=== PATIENT | female | born 1985 | race Hispanic/Latino ===

== ENCOUNTER 2016-11-02 17:23 | Emergency (ER) | payer OTHER ==
[~2016-11-02] VITALS: Ht 152.4 cm; Wt 68.0 kg
[~2016-11-02 17:23] MED LIST: ABILIFY20 MG PO; CEFTIN500 MG PO; CITALOPRAM HYDR40 MG PO; IBUPROFEN800 M1 PO; IMODIUM2 MG PO; LAMICTAL 25MG25 MG PO; LAMICTAL25 MG PO; LITHIUM CARBON300 M1 PO; MACROBID100 MG PO; MOTRIN800 MG PO; NEURONTIN100 MG; NEURONTIN100 MG PO; NEURONTIN300 MG PO; PHENAZOPYRIDIN100 MG PO; PREDNISONE10 MG PO; PRENATAL1 TA2 PO; PYRIDIUM100 MG PO; ROBITUSSIN W/CO10 ML PO; ZITHROMAX250 M1 PO; ZOFRAN ODT4 MG PO
--- NOTE | 2016-11-02 17:41 | ED SKIN/ALLERGY COMPLAINT ---
History of Present Illness General Chief Complaint: Allergy Symptoms Stated Complaint: WELTS ALL OVER BACK AND NECK X FEW HRS Source: patient Exam Limitations: no limitations Vital Signs & Intake/Output Vital Signs & Intake/Output Vital Signs Date Time Temp Pulse Resp B/P Pulse O2 O2 Flow FiO2 Ox Delivery Rate 11/02 1920 97.9 67 18 106/64 98 Room Air 11/02 1730 97.0 80 20 100/70 98 Room Air Allergies Coded Allergies: Penicillins (RASH 10/24/15) Sulfa (Sulfonamide Antibiotics) (RASH 10/24/15) clarithromycin (RASH 10/24/15) latex (RASH 10/24/15) moxifloxacin (From AVELOX) (HIVES, RASH 10/24/15) Reconcile Medications Aripiprazole (Abilify) 20 MG TABLET 1 TAB PO DAILY MENTAL HEALTH (Reported) Diphenhydramine HCl (Benadryl) 25 MG CAPSULE 1 CAP PO TID PRN ITCHING Famotidine (Pepcid) 20 MG TABLET 1 TAB PO BID ALLERGIC REACTION Lamotrigine (Lamictal) 25 MG TABLET 1 TAB PO TID MENTAL HEALTH (Reported) Methylprednisolone. (Medrol) 4 MG TAB.DS.PK 1 DP PO AD ALLERGIC REACTION 6 on day 1 then reduce by one tablet daily until gone Triage Note: GENERALIZED WELTS AND HIEVES ON BODY STARTED ABOUT 1 HR AGO DENIES HX Triage Nurses Notes Reviewed? yes Onset: Abrupt Duration: constant Timing: single episode today Severity: moderate Severity Numbers: 5 Location: torso Possible Factors: no cause identified : No Patient currently breastfeeds: No HPI: Patient is a 31-year-old female presents to emergency room stating that 2 hours prior to arrival patient was drinking a blueberry banana shake where she is lactose intolerant and which she states that approximately 15 minutes later patient had acute onset of upper back pruritic red rash. Patient did not take any medications prior to arrival. Patient denies any other location of symptoms , denies any shortness of breath tongue swelling lip swelling difficulty breathing difficulty swallowing. Patient denies any other etiology of symptoms or IRRITANTS (LORNA KAUFMAN) Past History Travel History Traveled to [place] past 21 day No Medical History Any Pertinent Medical History? 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 No (LORNA KAUFMAN) Review of Systems Review of Systems Constitutional: Reports: no symptoms. EENTM: Reports: no symptoms. Respiratory: Reports: no symptoms. Cardiovascular: Reports: no symptoms. GI: Reports: no symptoms. Genitourinary: Reports: no symptoms. Musculoskeletal: Reports: no symptoms. Skin: Reports: see HPI, rash. Neurological/Psychological: Reports: no symptoms. Hematologic/Endocrine: Reports: no symptoms. Immunologic/Allergic: Reports: no symptoms. All Other Systems: Reviewed and Negative (LORNA KAUFMAN) Physical Exam Physical Exam General Appearance: no apparent distress, alert, comfortable Skin: intact Skin Problem Location: torso Skin Problem Character: intact, rash Lymphatic: no anterior cervical alejandro Comments: Well-developed well-nourished person in no acute distress HEENT: Normal EENT exam, extraocular motion intact, no nystagmus. Pupils equally round and reactive to light and accommodation. Nose is atraumatic. External auditory canal and Tympanic membranes clear. Pharynx normal. No swelling or edema. No stridor no tongue swelling no lip swelling no pharyngeal swelling Neck: Supple, no lymphadenopathy, normal range of motion without pain or tenderness no stridor Back: Nontender, no CVA tenderness. Cardiovascular: Regular rate and rhythms no murmurs rubs or gallops, normal JVP Respiratory: Chest nontender. No respiratory distress.breath sounds clear to auscultation bilaterally Abdomen: Soft, nontender nondistended, no appreciable organomegaly. Normal bowel sounds. No ascites Extremity: No edema, no calf tenderness to palpation, normal and equal pulses. Neuro: Alert oriented x3, motor sensory normal, Skin: No appreciable rash on exposed skin, skin is warm and dry. Psych: Mood and affect is normal, memory and judgment is normal. Diagram Body: 1) Macular papular erythematous raised rash (LORNA KAUFMAN) Progress Differential Diagnosis: abscess/cellulitis, allergic reaction, anaphylaxis, angioedema, asthma, contact dermatitis, drug reaction, erythema multiforme, lyme disease, piyriasis rosea, syphilis/gonococcemia, urticaria Plan of Care: No concerns at this time of anaphylaxis or angioedema. Patient oxygen saturation was 98% room air no respiratory distress noted patient will be treated for concerns of urticaria 11/02/2016 7:13:34 PM patient was noted to be resting comfortably on gurney. Patient on reinspection of upper back shows significant improvement of urticaria. Again no stridor noted no respiratory distress clear lungs auscultation. PT had requested to be discharged. (LORNA KAUFMAN) Departure Departure Disposition: HOME OR SELF CARE Condition: Stable Clinical Impression Primary Impression: Urticaria Referrals: RBENT CHARLES,SRIRAM (PCP/Family) Additional Instructions: As discussed begin the prescription of Medrol Dosepak tomorrow as directed for inflammation. Begin the PRESCRIPTION of Benadryl and Pepcid for your symptoms. Please avoid the THE FOOD EATEN TODAY THAT MOST likely caused symptoms today as this may WORSEN YOUR symptoms. If symptoms worsen return to emergency room. Prescriptions are waiting AT [facility] pharmacy Departure Forms: Customer Survey General Discharge Information Prescriptions: Current Visit Scripts Methylprednisolone. (Medrol) 1 DP PO AD #1 DP 6 on day 1 then reduce by one tablet daily until gone Famotidine (Pepcid) 1 TAB PO BID #6 TAB Diphenhydramine HCl (Benadryl) 1 CAP PO TID PRN ITCHING #9 CAP (LORNA KAUFMAN) PA/HEAD OF SCIENCE Co-Sign Statement Statement: ED Attending supervision documentation- [] I saw and evaluated the patient. I have also reviewed all the pertinent lab results and diagnostic results. I agree with the findings and the plan of care as documented in the PA's/HEAD OF SCIENCE's documentation. [X] I have reviewed the ED Record and agree with the PA's/HEAD OF SCIENCE's documentation. [] Additions or exceptions (if any) to the PAs/HEAD OF SCIENCE's note and plan are summarized below: [] (SHILPA CHARLES,BLANCA Hopkins)
[2016-11-02] MEDS ORDERED: ABILIFY20 M1 PO (17:45)
[2016-11-02] MEDS ORDERED: LAMICTAL25 M1 PO (17:45)
[2016-11-02] MEDS ORDERED: PEPCID20 M1 PO (19:07)
[2016-11-02] MEDS ORDERED: BENADRYL25 MG PO (19:07)
[2016-11-02] MEDS ORDERED: MEDROL4 M2 PO (19:07)
[2016-11-02 19:20] VITALS: BP 106/64
== END 2016-11-02 19:36 ==
LOC: ERH 17:23
DX: L50.9 Urticaria, unspecified (principal)
CPT/HCPCS: 96374; 96375; J1200; J2930

== ENCOUNTER 2016-11-10 18:36 | Emergency (ER) | payer OTHER ==
[~2016-11-10] VITALS: Ht 152.4 cm; Wt 63.5 kg
[~2016-11-10 18:36] MED LIST changes: +ABILIFY20 M1 PO; +BENADRYL25 MG PO; +LAMICTAL25 M1 PO; +MEDROL4 M2 PO; +PEPCID20 M1 PO
[2016-11-10 20:04] LABS: ABSOLUTE BASOPHIL COUNT 0.1 /CUMM (0.0-0.2); ABSOLUTE EOSINOPHIL COUNT 0.2 /CUMM (0.0-0.7); ABSOLUTE GRANULOCYTE CT 11.9 /CUMM (1.4-6.5); BASOPHIL % 0.4 % (0.0-2.0); EOSINOPHIL % 1.1 % (0-5); GRANULOCYTE % 69.1 % (42.2-75.2); HEMATOCRIT 45.3 % (37-47); MEAN CORPUSCULAR HGB 30.5 PG (27.0-31.0); MEAN CORPUSCULAR HGB CONC 33.5 G/DL (33.0-37.0); MEAN PLATELET VOLUME 7.5 FL (7.4-10.4); PLATELET COUNT 316 /CUMM (130-400); RED BLOOD CELL CT 4.97 /CUMM (4.20-5.40); WHITE BLOOD CELL COUNT 17.2 /CUMM (4.8-10.8)
[2016-11-10] MEDS ORDERED: MOTRIN IB200 M1 PO (20:05)
--- NOTE | 2016-11-10 20:34 | ED GI/GU/ABDOMINAL COMPLAINT ---
History of Present Illness General Chief Complaint: Abdominal Pain/Flank Pain Stated Complaint: ABD PAIN Source: patient Exam Limitations: no limitations Vital Signs & Intake/Output Vital Signs & Intake/Output Vital Signs Date Time Temp Pulse Resp B/P Pulse O2 O2 Flow FiO2 Ox Delivery Rate 11/10 2220 97.8 80 18 118/74 99 Room Air 11/10 1838 97.3 100 18 122/86 97 Room Air ED Intake and Output 11/11 0000 11/10 1200 Intake Total 0 Output Total Balance 0 Intake, Oral 0 Patient 140 lb Weight Allergies Coded Allergies: Penicillins (RASH 10/24/15) Sulfa (Sulfonamide Antibiotics) (RASH 10/24/15) clarithromycin (RASH 10/24/15) latex (RASH 10/24/15) moxifloxacin (From AVELOX) (HIVES, RASH 10/24/15) Reconcile Medications Aripiprazole (Abilify) 20 MG TABLET 1 TAB PO DAILY MENTAL HEALTH (Reported) Doxycycline Hyclate 100 MG CAPSULE 1 CAP PO BID PID Ibuprofen (Motrin Ib) 200 MG TABLET 4 TAB PO Q8H PAIN (Reported) Lamotrigine (Lamictal) 25 MG TABLET 1 TAB PO TID MENTAL HEALTH (Reported) Metronidazole (Flagyl) 500 MG TABLET 1 TAB PO BID PID Triage Note: PT COMPLAINS OF LOW PELVIC CRAMPING, WHITE DISCHARGE WITH ODOR. LMP 2, DENIES URINARY SYMPTOMS Triage Nurses Notes Reviewed? yes ? n Is pt currently ? No HPI: 31 yo F PMH Bipolar disorder presenting with pelvic pain, vaginal Sx. Intermittent right lower pelvic pain for the past 1-2 weeks, dull, aching quality. Vaginal Sx with whitish foul smelling discharge x 1-2 weeks, vaginal itching, dyspareunia. Denies dysuria, frequency, urgency, vaginal bleeding, N/V/ D/C, bloody stools. Sexually active with 2 male partners for the last year, does not use protection, partners don't appear to have similar Sx. (RICHIE CHARLES,JATIN) Past History Travel History Traveled to [place] past 21 day No Medical History Any Pertinent Medical History? 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 No (JATIN QUIROZ MD) Review of Systems Review of Systems Constitutional: Denies: chills, fever, malaise, weakness. EENTM: Reports: no symptoms. Respiratory: Reports: no symptoms. Cardiovascular: Reports: no symptoms. GI: Reports: abdominal pain. Denies: constipation, diarrhea, melena, nausea, bloody stool, vomiting. Genitourinary: Reports: discharge, pain. Musculoskeletal: Reports: no symptoms. Skin: Reports: no symptoms. Neurological/Psychological: Reports: no symptoms. Hematologic/Endocrine: Reports: no symptoms. Immunologic/Allergic: Reports: no symptoms. All Other Systems: Reviewed and Negative (JATIN QUIROZ MD) Physical Exam Physical Exam General Appearance: well developed/nourished, no apparent distress, alert, awake , anxious Head: atraumatic, normal appearance Eyes: Bilateral: normal appearance. Neck: normal inspection, supple, full range of motion Respiratory: normal breath sounds, no respiratory distress, lungs clear Cardiovascular: regular rate/rhythm, normal peripheral pulses Gastrointestinal: normal bowel sounds, soft, RLQ TTP, negative rovsing, murphys, obturator, psoas tests Comments: Pelvic Exam: White serous vaginal discharge, unable to full visualize cervix, (+ ) CMT without appreciable adnexal masses on bimanual exam Core Measures ACS in differential dx? No Severe Sepsis Present: No Septic Shock Present: No (JATIN QUIROZ MD) Progress Differential Diagnosis: appendicitis, bowel obstruction, cholecystitis, endometritis, inflamm bowel dis, ovarian cyst, ovarian torsion, PID/cervicitis, PUD/GERD, threatened AB, UTI/pyelo Plan of Care: Orders Procedure Date/time Status GENITAL CULTURE 11/10 2018 Active TRICHOMONAS 11/10 2008 Complete LIPASE 11/11 1915 Complete HEPATIC FUNCTION PANEL 11/11 1915 Complete CBC WITHOUT DIFFERENTIAL 11/11 1915 Complete BASIC METABOLIC PANEL 11/11 1915 Complete AMYLASE 11/11 1915 Complete URINE 11/10 1841 Complete URINALYSIS 11/10 1841 Complete Laboratory Tests 11/10/16 1942: Anion Gap 9, Estimated GFR > 60, BUN/Creatinine Ratio 15.6, Glucose 82, Calcium 9.8, Total Bilirubin 0.4, Direct Bilirubin 0.3, AST 26, ALT 42, Alkaline Phosphatase 95, Total Protein 6.9, Albumin 4.1, Amylase 32, Lipase 80, CBC w Diff MAN DIFF ORDERED, RBC 4.97, MCV 91.0, MCH 30.5, RDW 13.0, MPV 7.5, Gran % 69.1, Lymphocytes % 23.5, Monocytes % 5.9, Eosinophils % 1.1, Basophils % 0.4, Absolute Granulocytes 11.9 H, Segmented Neutrophils 67, Band Neutrophils 3, Absolute Lymphocytes 4.0 H, Lymphocytes 26, Monocytes 3, Absolute Monocytes 1.0 H, Absolute Eosinophils 0.2, Basophils 1, Absolute Basophils 0.1, Platelet Estimate ADEQUATE, Normochromic RBCs VERIFIED, PUBS MCHC 33.5 11/10/16 1850: Urine Color YEL, Urine Clarity CLEAR, Urine pH 6.5, Ur Specific Eldred 1.025, Urine Protein NEG, Urine Ketones NEG, Urine Nitrite NEG, Urine Bilirubin NEG, Urine Urobilinogen 0.2, Ur Leukocyte Esterase NEG, Ur Microscopic EXAM NOT REQUIRED, Urine Hemoglobin NEG, Urine Glucose NEG, Urine Test NEGATIVE Microbiology 11/10 2018 GENITAL: Genital Culture - RECD 11/10 2018 GENITAL: Trichomonas Preparation - COMP 11/10 2008 GENITAL: GC DNA Probe - CAN Cancelled: SPECIMEN NEVER RECEIVED/NOT FOUND. PATIENT DEPARTED [facility] 11/10 2008 GENITAL: Chlamydia DNA Probe ([facility]) - CAN Cancelled: SPECIMEN NEVER RECEIVED/NOT FOUND. PATIENT DEPARTED [facility] Physcian MDM: 31 yo F presenting with vaginal Sx, RLQ pain x 2 weeks. VSS, afebrile, abdominal and pelvic exams as above. DDx: UTI, STI, PID, appendicitis, less likely TOA, ovarian cyst, ovarian torsion. Ibuprofen for pain. CBC with leukocytosis 17.2. UA not suggestive of infection. CT A/P without evidence of appendicitis or TOA. Testing for CG, CH and trich sent during pelvic exam, patient plans to f/u with OBGYN for results. Ceftriaxone 250 mg IM, flagyl 500 mg PO, doxycycline 100 mg PO given in ED, will D/C with Rx for flagyl and Doxy. Patient counseled to have partners tested and treated (no intercourse until then ), counseled to avoid EtOH while on flagly. D/[place] with return precautions and plans for close OBGYN f/u. D/W Dr. Jones. (RICHIE CHARLES,JATIN) Initial ED EKG: none (RICHIE CHARLES,JATIN) Departure Departure Disposition: HOME OR SELF CARE Condition: Stable Clinical Impression Primary Impression: PID (acute pelvic inflammatory disease) Referrals: SRIRAM KENNEDY MD (PCP/Family) Additional Instructions: Take ibuprofen as needed for pain. Take doxycyline and flagyl for the next 14 days. Follow up wth your OBGYN in the next 2-3 days for results of testing. Tell your sexual partners to get tested and treated. Return to the ED for any new, worsening, or concenring symptoms. Departure Forms: Customer Survey General Discharge Information Prescriptions: Current Visit Scripts Doxycycline Hyclate 1 CAP PO BID #28 CAP Metronidazole (Flagyl) 1 TAB PO BID #28 TAB (RICHIE CHARLES,JATIN) Resident Co-Sign Statement Statement: ED Attending supervision documentation- [x] I saw and evaluated the patient. I have also reviewed all the pertinent lab results and diagnostic results. I agree with the findings and the plan of care as documented in the Resident's documentation. [] I have reviewed the ED Record and agree with the Resident's documentation. [] Additions or exceptions (if any) to the Resident's note and plan are summarized below: [] (LILIBETH CHARLES,ROSALINDA Pérez)
--- NOTE | 2016-11-10 21:32 | CT SCAN REPORT ---
EXAMINATION: CT ABDOMEN AND PELVIS WITH CONTRAST CLINICAL INFORMATION: Right lower quadrant abdominal pain and vaginal discharge. COMPARISON: CT abdomen and pelvis without contrast 01/03/2014. Pelvic ultrasound 06/30/2015. TECHNIQUE: Multidetector volumetric imaging was performed of the abdomen and pelvis before and after the IV administration of 94 mL of Optiray 320 intravenous contrast. Sagittal and coronal reformatted images were obtained on the technologist's workstation. DLP: 291 mGy-cm FINDINGS: LUNG BASES: The visualized lung bases are unremarkable. LIVER, GALLBLADDER, AND BILIARY TREE: The liver is normal in size, shape, and attenuation. No focal hepatic lesion or biliary ductal dilatation is present. The gallbladder is unremarkable with no evidence of radiopaque gallstones, gallbladder wall thickening, or obvious pericholecystic inflammatory changes. PANCREAS: Unremarkable. SPLEEN: Unremarkable. ADRENAL GLANDS: Unremarkable. KIDNEYS AND URETERS: The kidneys are normal in size and enhance homogeneously, without solid parenchymal lesions. Subcentimeter hypoattenuating lesions within the bilateral kidneys are favored to represent simple renal cortical cysts. There are punctate 2 mm nonobstructing stones within the mid and lower poles of the right kidney. There is no appreciable nephrolithiasis of the left kidney. No ureteral stones are identified and there is no hydroureteronephrosis of either kidney or renal collecting system. BLADDER: Unremarkable. GASTROINTESTINAL TRACT: Normal anatomic orientation of the stomach relative to the duodenum. Normal caliber of abdominal and pelvic bowel loops, without evidence of obstruction or ileus. No circumferential bowel wall thickening with surrounding inflammatory changes to suggest an underlying infectious or inflammatory enterocolitis. Normal-appearing appendix within the right lower quadrant of the abdomen. No organizing intra-abdominal fluid collections or free intraperitoneal air. ABDOMINAL WALL: No significant hernia is appreciated. LYMPH NODES: No significant abdominal or pelvic adenopathy. VASCULAR: Patent abdominal vasculature. Normal course and caliber of the abdominal aorta and its branching vessels, without aneurysmal dilatation. PELVIC VISCERA: Questionable mild stranding within the right adnexa. OSSEOUS STRUCTURES: No acute osseous abnormality. Normal alignment of the imaged thoracolumbar spine. IMPRESSION: No acute findings within the abdomen to explain patient symptomatology. A normal-appearing appendix is visualized within the right lower quadrant of the abdomen. There is questionable mild stranding and inflammation within the right adnexa. If the patient is experiencing pelvic pain, consider correlation with pelvic ultrasound. There are no visible fluid collections to suggest a tubo-ovarian abscess. However, this would be better assessed with pelvic ultrasound.
[2016-11-10 22:20] VITALS: BP 118/74
[2016-11-10] MEDS ORDERED: DOXYCYCLINE HY100 M2 PO (22:23)
[2016-11-10] MEDS ORDERED: FLAGYL500 MG PO (22:23)
== END 2016-11-10 22:31 ==
LOC: ERH 18:36
PROVIDERS: Pediatrics
DX: N73.0 Acute parametritis and pelvic cellulitis (principal)
CPT/HCPCS: 87070; 74177; 81003; 81025; 87491; 87591; 96372; J0696

== ENCOUNTER 2016-11-19 19:27 | Emergency (ER) | payer OTHER ==
[~2016-11-19] VITALS: Ht 152.4 cm; Wt 63.5 kg
[~2016-11-19 19:27] MED LIST changes: +DOXYCYCLINE HY100 M2 PO; +FLAGYL500 MG PO; +MOTRIN IB200 M1 PO
--- NOTE | 2016-11-19 19:56 | ED GENERAL ADULT ---
History of Present Illness General Chief Complaint: Allergy Symptoms Stated Complaint: "FACE FEELS LIKE IT IS BURNING",SWOLLEN -SOB Source: patient Exam Limitations: no limitations Vital Signs & Intake/Output Vital Signs & Intake/Output Vital Signs Date Time Temp Pulse Resp B/P Pulse O2 O2 Flow FiO2 Ox Delivery Rate 11/20 2203 98.3 89 16 124/74 100 Room Air 11/19 2002 99 Room Air 11/19 1948 98.3 80 16 122/70 98 Room Air Room Air ED Intake and Output 11/20 0000 11/19 1200 Intake Total 0 Output Total Balance 0 Intake, Oral 0 Patient 140 lb Weight Allergies Coded Allergies: Penicillins (RASH 11/19/16) Sulfa (Sulfonamide Antibiotics) (RASH 11/19/16) clarithromycin (RASH 11/19/16) latex (RASH 11/19/16) moxifloxacin (From AVELOX) (HIVES, RASH 11/19/16) Reconcile Medications Aripiprazole (Abilify) 20 MG TABLET 1 TAB PO DAILY MENTAL HEALTH (Reported) Diphenoxylate HCl/Atropine (Lomotil 2.5-0.025 MG Tablet) 2.5 MG-0.025 MG TABLET 1 TAB PO 4 TIMES/DAY PRN diarrhea twenty...[id number] Doxycycline Hyclate 100 MG CAPSULE 1 CAP PO BID PID Ibuprofen (Motrin Ib) 200 MG TABLET 4 TAB PO Q8H PAIN (Reported) Lamotrigine (Lamictal) 25 MG TABLET 1 TAB PO TID MENTAL HEALTH (Reported) Metronidazole (Flagyl) 500 MG TABLET 1 TAB PO BID PID Ondansetron (Zofran Odt) 4 MG TAB.RAPDIS 1 TAB SL TID PRN nausea Triage Note: PT TO TRIAGE FOR NAUSEA DIARRHEA AND RIGHT LOWER ABD PAIN. STATES SHE FEELS LIKE SHE IS HAVE A MED REACTION TO FLAGYL AND DOXICYCLINE. SHE IS TAKING FOR ABOUT A WEEK FOR AN STD. PT SKIN SLIGHTLY RED. NO RESPIRATORY DISTRESS. NO FACIAL OR TONGUE SWELLING Triage Nurses Notes Reviewed? yes Onset: Gradual Duration: day(s):, waxing and waning Timing: recent history Injury Environment: home Severity: moderate Modifying Factors: Improves With: rest. Worsens With: medication. Associated Symptoms: facial burning : No Patient currently breastfeeds: No HPI: 31-year-old woman presents with 1 day history of facial burning and also diarrhea and mild nausea without vomiting. She recently started doxycycline and Flagyl for sexual transmitted infection. She notes that several days after starting this medication, she developed these symptoms. She notes no dyspnea or wheezing. She notes that she continues to have mild right lower quadrant abdominal pain and shares that she had a negative CAT scan last week. She does not wish another CAT scan. She took a few doses of Benadryl earlier today with mild improvement. She has no fever chills dysuria or vaginal discharge. Past History Travel History Traveled to [place] past 21 day No Medical History Any Pertinent Medical History? 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 No Review of Systems Review of Systems Constitutional: Reports: no symptoms. EENTM: Reports: no symptoms. Respiratory: Reports: no symptoms. Cardiovascular: Reports: no symptoms. GI: Reports: no symptoms. Genitourinary: Reports: no symptoms. Musculoskeletal: Reports: no symptoms. Skin: Reports: no symptoms. Neurological/Psychological: Reports: no symptoms. Hematologic/Endocrine: Reports: no symptoms. Immunologic/Allergic: Reports: no symptoms. All Other Systems: Reviewed and Negative Physical Exam Physical Exam General Appearance: well developed/nourished, no apparent distress Head: atraumatic, urticaria on both cheeks Eyes: Bilateral: normal appearance, PERRL, EOMI. Ears, Nose, Throat: normal pharynx, normal ENT inspection Neck: normal inspection, supple, full range of motion Respiratory: normal breath sounds, chest non-tender, no respiratory distress, quiet respiration, lungs clear Cardiovascular: regular rate/rhythm Gastrointestinal: normal bowel sounds, soft, non-tender, no organomegaly Back: normal inspection, normal range of motion Extremities: normal inspection, normal capillary refill, normal range of motion, no edema Neurologic/Psych: no motor/sensory deficits, awake, alert, oriented x 3 Skin: intact, normal color, warm/dry Core Measures ACS in differential dx? No CVA/TIA Diagnosis: No Severe Sepsis Present: No Septic Shock Present: No Progress Differential Diagnoses I considered the following diagnoses in my evaluation of the patient: Medication side effect versus allergic reaction versus viral syndrome versus other Plan of Care: Orders Procedure Date/time Status URINALYSIS 11/19 2004 Complete LIPASE 11/19 2004 Complete HEPATIC FUNCTION PANEL 11/19 2004 Complete CBC WITHOUT DIFFERENTIAL 11/19 2004 Complete BASIC METABOLIC PANEL 11/19 2004 Complete AMYLASE 11/19 2004 Complete Laboratory Tests 11/19/16 2016: Anion Gap 6, Estimated GFR > 60, BUN/Creatinine Ratio 14.4, Glucose 83, Calcium 9.3, Total Bilirubin 0.2, Direct Bilirubin 0.2, AST 32, ALT 50, Alkaline Phosphatase 77, Total Protein 6.1 L, Albumin 3.6, Amylase < 30 L, Lipase 91, CBC w Diff NO MAN DIFF REQ, RBC 4.49, MCV 90.4, MCH 30.5, RDW 13.3, MPV 8.1, Gran % 65.6, Lymphocytes % 25.0, Monocytes % 7.3, Eosinophils % 1.4, Basophils % 0.7, Absolute Granulocytes 8.3 H, Absolute Lymphocytes 3.2, Absolute Monocytes 0.9 H, Absolute Eosinophils 0.2, Absolute Basophils 0.1, PUBS MCHC 33.7 11/19/162009: Urine Color YEL, Urine Clarity CLEAR, Urine pH 6.0, Ur Specific Thayer 1.025, Urine Protein NEG, Urine Ketones NEG, Urine Nitrite NEG, Urine Bilirubin NEG, Urine Urobilinogen 0.2, Ur Leukocyte Esterase TRACE H, Ur Microscopic SEDIMENT EXAMINED, Urine RBC RARE, Urine WBC 3-5 H, Ur Epithelial Cells FEW, Urine Crystals 1+ CA OX H, Urine Bacteria FEW H, Urine Mucus FEW, Urine Hemoglobin NEG, Urine Glucose NEG Initial ED EKG: none Departure Departure Disposition: HOME OR SELF CARE Condition: Stable Clinical Impression Primary Impression: Medication side effect Secondary Impressions: Diarrhea, Nausea Referrals: SRIRAM KENNEDY MD (PCP/Family) Departure Forms: Customer Survey General Discharge Information Prescriptions: Current Visit Scripts Ondansetron (Zofran Odt) 1 TAB SL TID PRN nausea #10 TAB Diphenoxylate HCl/Atropine (Lomotil 2.5-0.025 MG Tablet) 1 TAB PO 4 TIMES/DAY PRN diarrhea #20 TAB twenty...[id number] Comments Labs are benign. Patient has benign exam Critical Care Note Critical Care Note Critical Care Time: non-applicable
[2016-11-19 20:30] LABS: ABSOLUTE BASOPHIL COUNT 0.1 /CUMM (0.0-0.2); ABSOLUTE EOSINOPHIL COUNT 0.2 /CUMM (0.0-0.7); ABSOLUTE GRANULOCYTE CT 8.3 /CUMM (1.4-6.5); ABSOLUTE LYMPH COUNT 3.2 /CUMM (1.2-3.4); ABSOLUTE MONOCYTE COUNT 0.9 /CUMM (0.10-0.60); BASOPHIL % 0.7 % (0.0-2.0); EOSINOPHIL % 1.4 % (0-5); GRANULOCYTE % 65.6 % (42.2-75.2); HEMATOCRIT 40.5 % (37-47); MEAN CORPUSCULAR HGB 30.5 PG (27.0-31.0); MEAN CORPUSCULAR HGB CONC 33.7 G/DL (33.0-37.0); MEAN CORPUSCULAR VOLUME 90.4 FL (81.0-99.0); MEAN PLATELET VOLUME 8.1 FL (7.4-10.4); PLATELET COUNT 237 /CUMM (130-400); RBC DISTRIBUTION WIDTH 13.3 % (11.5-14.5); RED BLOOD CELL CT 4.49 /CUMM (4.20-5.40); WHITE BLOOD CELL COUNT 12.7 /CUMM (4.8-10.8)
[2016-11-19] MEDS ORDERED: ZOFRAN ODT4 M1 SL (21:18)
[2016-11-19] MEDS ORDERED: LOMOTIL 2.5-0.1 EACH PO (21:18)
[2016-11-19 22:04] VITALS: BP 124/74
== END 2016-11-19 22:05 ==
LOC: ERH 19:27
PROVIDERS: Pediatrics
DX: T36.4X5A Adverse effect of tetracyclines, initial encounter (principal); T37.3X5A Adverse effect of other antiprotozoal drugs, initial encounter; R19.7 Diarrhea, unspecified; R11.0 Nausea; R10.31 Right lower quadrant pain
CPT/HCPCS: 81001; 96374; J1200; J1885; J2405

== ENCOUNTER 2017-01-18 13:34 | Emergency (ER) | payer OTHER ==
[~2017-01-18] VITALS: Ht 152.4 cm; Wt 68.0 kg
[~2017-01-18 13:34] MED LIST changes: +LOMOTIL 2.5-0.1 EACH PO; +ZOFRAN ODT4 M1 SL
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
[2017-01-18 13:47] VITALS: BP 125/80
[2017-02-20] MEDS ORDERED: ZOFRAN ODT4 M1 SL (22:05)
== END 2017-01-18 14:53 ==
LOC: ERH 13:34
DX: S16.1XXA Strain of muscle, fascia and tendon at neck level, initial encounter (principal); V89.2XXA Person injured in unspecified motor-vehicle accident, traffic, initial encounter; Y92.488 Other paved roadways as the place of occurrence of the external cause
CPT/HCPCS: 81025

== ENCOUNTER 2017-02-08 15:19 | Emergency (ER) | payer OTHER ==
[~2017-02-08] VITALS: Ht 152.4 cm; Wt 68.0 kg
[2017-02-08 15:27] VITALS: BP 114/77
--- NOTE | 2017-02-08 15:36 | ED GI/GU/ABDOMINAL COMPLAINT ---
History of Present Illness General Chief Complaint: Nausea, Vomiting, Diarrhea Stated Complaint: NVD Source: patient, old records Exam Limitations: no limitations Vital Signs & Intake/Output Vital Signs & Intake/Output Vital Signs Date Time Temp Pulse Resp B/P B/P Pulse O2 O2 Flow FiO2 Mean Ox Delivery Rate 02/08 1614 Room Air 02/08 1527 98.0 96 18 114/77 97 Room Air Allergies Coded Allergies: Penicillins (RASH 11/19/16) Sulfa (Sulfonamide Antibiotics) (RASH 11/19/16) clarithromycin (RASH 11/19/16) latex (RASH 11/19/16) moxifloxacin (From AVELOX) (HIVES, RASH 11/19/16) Reconcile Medications Aripiprazole (Abilify) 20 MG TABLET 1 TAB PO DAILY MENTAL HEALTH (Reported) Diphenoxylate HCl/Atropine (Lomotil 2.5-0.025 MG Tablet) 2.5 MG-0.025 MG TABLET 1 TAB PO 4 TIMES/DAY PRN diarrhea twenty...[id number] Doxycycline Hyclate 100 MG CAPSULE 1 CAP PO BID PID Ibuprofen (Motrin Ib) 200 MG TABLET 4 TAB PO Q8H PAIN (Reported) Lamotrigine (Lamictal) 25 MG TABLET 1 TAB PO TID MENTAL HEALTH (Reported) Metronidazole (Flagyl) 500 MG TABLET 1 TAB PO BID PID Ondansetron (Zofran Odt) 4 MG TAB.RAPDIS 1 TAB SL TID PRN nausea Ondansetron (Zofran Odt) 4 MG TAB.RAPDIS 1 TAB SL TID PRN nausea Pantoprazole Sodium (Protonix) 20 MG TABLET. 1 TAB PO DAILY gerd Triage Note: PT TO TRIAGE WITH C/O VOMITINGx3, [id number], EPIGASTRIC PAIN 5/10 SINCE THIS MORNING. PT DENIES SOB,CHEST PAIN, URINARY S/S. VSS. Triage Nurses Notes Reviewed? yes ? n Is pt currently ? No Onset: Abrupt Duration: day(s): (1), constant Timing: recent history Quality/Severity: aching, cramping Severity Numbers: 6 Location: epigastric Radiation: no radiation Activities at Onset: none No Modifying Factors: none Associated Symptoms: diarrhea, nausea/vomiting HPI: 31-year-old female with history of IBS presents to ER for evaluation complaining of a one-day history of multiple episodes of nausea vomiting diarrhea since this morning. She states she ate [employer] last night. No sick contacts recent travel or recent antibiotic use. She states since the vomiting diarrhea and epigastric burning aching discomfort. She is not taken anything for her symptoms. No history of abdominal surgeries in the past. No fever no chills no chest pain shortness of breath no pain with inspiration is no radiation of pain in the right-sided or back pain no urinary complaints no vaginal bleeding or discharge. (LORNA ORANTES) Past History Travel History Traveled to [place] past 21 day No Medical History Any Pertinent Medical History? 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 No (LORNA ORANTES) Review of Systems Review of Systems Constitutional: Reports: see HPI. All Other Systems: Reviewed and Negative Comments Review of systems: See HPI, All other systems negative. Constitutional, no chills no fever, no malaise HEENT: no sore throat no congestion, no ear pain Cardiovascular: No chest pain , no palpitation Skin: no rashes, no change in skin Respiratory: No dyspnea no cough no sputum GI: nausea vomiting, diarrhea, no bloating/constipation : No dysuria No hematuria, no frequency, no discharge Muscle skeletal: No joint pain, no joint swelling, no back pain, no neck pain, Neurologic:no headache Psych: No stress Heme/endocrine: No bruising Immunology: No lymphadenopathy (LORNA ORANTES) Physical Exam Physical Exam General Appearance: well developed/nourished, no apparent distress, alert Gastrointestinal: soft, tenderness (epigastric) Comments: Well-developed well-nourished person in no acute distress HEENT: Normal EENT exam; PERRL, EOMI, no nystagmus. HEAD is atraumatic. moist mucous membranes. Neck: Supple,normal range of motion Back: Nontender, no CVA tenderness. Full range of motion Cardiovascular: Regular rate and rhythms no murmurs rubs Respiratory: Chest nontender.There were no bony deformities, no asymmetry. No respiratory distress. Patient speaking in full complete sentences. Breath sounds clear to auscultation bilaterally: NO W/R/R Abdomen: Soft, mild epigastric tenderness negative Tucker sign nondistended, no appreciable organomegaly. Normal bowel sounds. No rebound/guarding, No ascites. Extremity: No edema, full range of motion of extremities Neuro: Alert oriented x3, motor sensory normal, There were no obvious focal neurologic abnormalities. Skin: No appreciable rash on exposed skin, skin is warm and dry. Psych: Mood and affect is normal, memory and judgment is normal. Core Measures ACS in differential dx? No Severe Sepsis Present: No Septic Shock Present: No (CHANDA WILLIS,LORNA) Progress Differential Diagnosis: appendicitis, biliary colic, bowel obstruction, colon cancer, diverticulitis, ectopic , gastritis, hepatitis, hernia, inflamm bowel dis, intrauterine , kidney stone, peptic ulcer, PUD/GERD, perforated viscous, SBO, threatened AB Plan of Care: Orders Procedure Date/time Status Saline Lock 02/08 1540 Active LIPASE 02/08 1540 Complete HUMAN BETA HCG SCREEN 02/08 1540 Complete COMPREHENSIVE METABOLIC PANEL 02/08 1540 Complete CBC WITHOUT DIFFERENTIAL 02/08 1540 Complete AMYLASE 02/08 1540 Complete Laboratory Tests 02/08/17 1555: Anion Gap 9, Estimated GFR > 60, BUN/Creatinine Ratio 16.3, Glucose 110 H, Calcium 10.1, Total Bilirubin 0.4, AST 26, ALT 43, Alkaline Phosphatase 76, Total Protein 6.5, Albumin 4.1, Globulin 2.4, Albumin/Globulin Ratio 1.7, Amylase 41, Lipase 66, Total Beta HCG NEGATIVE, CBC w Diff NO MAN DIFF REQ, RBC 4.74, MCV 90.8, MCH 30.6, RDW 13.4, MPV 7.8, Gran % 69.3, Lymphocytes % 23.5, Monocytes % 5.4, Eosinophils % 1.4, Basophils % 0.4, Absolute Granulocytes 9.7 H, Absolute Lymphocytes 3.3, Absolute Monocytes 0.7 H, Absolute Eosinophils 0.2 , Absolute Basophils 0.1, PUBS MCHC 33.7 Labs ordered old records reviewed patient medicated Zofran and Pepcid IV fluids IV 02/08/2017 4:45:09 PM On repeat evaluation patient had no episodes of vomiting here in the department tolerating by mouth abdomen is soft Nontender reports improvement in pain/nausea with medication. symptoms are consistent with gastritis versus viral syndrome-given eating fast food the symptoms began afterwards. Pain is improved nausea is improved tolerated by mouth discussed with her her elevated white blood cell count as well as all of her other results. I had an extensive conversation regarding need for close follow up with their primary care physician hossein, as well as return precautions. I answered all of their questions, they feel comfortable with the plan and follow- up care. I discussed with the patient/family the medications that they will receive. I gave them signs and symptoms that could indicate an adverse reaction. I have advised them to limit their activities until they can see how they respond to the medication. (LORNA ORANTES) Initial ED EKG: none (LORNA ORANTES) Departure Departure Time of Disposition: 1642 Disposition: HOME OR SELF CARE Condition: Stable Clinical Impression Primary Impression: Gastritis Referrals: UNKNOWN (PCP/Family) Additional Instructions: Follow-up with your primary care physician on Friday. [place] diet clear liquids as discussed. Advance diet as tolerated Zofran and Protonix as discussed. Return to ER immediately if he had worsening of her symptoms despite medication develops fever chills worsening abdominal pain or any other concerns. these were sent to [facility] Departure Forms: Customer Survey General Discharge Information Prescriptions: Current Visit Scripts Ondansetron (Zofran Odt) 1 TAB SL TID PRN nausea #10 TAB Pantoprazole Sodium (Protonix) 1 TAB PO DAILY #14 TAB (LORNA ORANTES) PA/BUSINESS CENTER REPRESENTATIVE Co-Sign Statement Statement: ED Attending supervision documentation- [] I saw and evaluated the patient. I have also reviewed all the pertinent lab results and diagnostic results. I agree with the findings and the plan of care as documented in the PA's/BUSINESS CENTER REPRESENTATIVE's documentation. [X] I have reviewed the ED Record and agree with the PA's/BUSINESS CENTER REPRESENTATIVE's documentation. [] Additions or exceptions (if any) to the PAs/BUSINESS CENTER REPRESENTATIVE's note and plan are summarized below: [] (SHILPA CHARLES,BLANCA Hopkins)
[2017-02-08 16:03] LABS: ABSOLUTE BASOPHIL COUNT 0.1 /CUMM (0.0-0.2); ABSOLUTE EOSINOPHIL COUNT 0.2 /CUMM (0.0-0.7); ABSOLUTE GRANULOCYTE CT 9.7 /CUMM (1.4-6.5); ABSOLUTE LYMPH COUNT 3.3 /CUMM (1.2-3.4); ABSOLUTE MONOCYTE COUNT 0.7 /CUMM (0.10-0.60); BASOPHIL % 0.4 % (0.0-2.0); EOSINOPHIL % 1.4 % (0-5); GRANULOCYTE % 69.3 % (42.2-75.2); MEAN CORPUSCULAR HGB 30.6 PG (27.0-31.0); MEAN CORPUSCULAR HGB CONC 33.7 G/DL (33.0-37.0); MEAN CORPUSCULAR VOLUME 90.8 FL (81.0-99.0); MEAN PLATELET VOLUME 7.8 FL (7.4-10.4); PLATELET COUNT 287 /CUMM (130-400); RBC DISTRIBUTION WIDTH 13.4 % (11.5-14.5); RED BLOOD CELL CT 4.74 /CUMM (4.20-5.40)
[2017-02-08] MEDS ORDERED: PROTONIX20 M1 PO (16:45)
[2017-02-08] MEDS ORDERED: ZOFRAN ODT4 M1 SL (16:45)
[2017-02-20] MEDS ORDERED: ZOFRAN ODT4 M1 SL (22:05)
== END 2017-02-08 17:14 ==
LOC: ERH 15:19
PROVIDERS: Physician Assistant Medical
DX: K29.70 Gastritis, unspecified, without bleeding (principal)
CPT/HCPCS: 96361; 96374; 96375; J2405

== ENCOUNTER 2017-03-07 19:32 | Emergency (ER) | payer OTHER ==
[~2017-03-07 19:32] MED LIST changes: +PROTONIX20 M1 PO
[2017-03-07 19:48] VITALS: BP 103/70
--- NOTE | 2017-03-07 20:19 | ED SKIN/ALLERGY COMPLAINT ---
History of Present Illness General Chief Complaint: Laceration Procedure Stated Complaint: LAC TO RIGHT MIDDLE FINGER Source: patient Exam Limitations: no limitations Vital Signs & Intake/Output Vital Signs & Intake/Output Vital Signs Date Time Temp Pulse Resp B/P B/P Pulse O2 O2 Flow FiO2 Mean Ox Delivery Rate 03/078 98.8 99 16 103/70 97 Allergies Coded Allergies: Penicillins (RASH 11/19/16) Sulfa (Sulfonamide Antibiotics) (RASH 11/19/16) clarithromycin (RASH 11/19/16) latex (RASH 11/19/16) moxifloxacin (From AVELOX) (HIVES, RASH 11/19/16) Reconcile Medications Aripiprazole (Abilify) 20 MG TABLET 1 TAB PO DAILY MENTAL HEALTH (Reported) Diphenoxylate HCl/Atropine (Lomotil 2.5-0.025 MG Tablet) 2.5 MG-0.025 MG TABLET 1 TAB PO 4 TIMES/DAY PRN diarrhea twenty...[id number] Doxycycline Hyclate 100 MG CAPSULE 1 CAP PO BID PID Ibuprofen (Motrin Ib) 200 MG TABLET 4 TAB PO Q8H PAIN (Reported) Lamotrigine (Lamictal) 25 MG TABLET 1 TAB PO TID MENTAL HEALTH (Reported) Metronidazole (Flagyl) 500 MG TABLET 1 TAB PO BID PID Ondansetron (Zofran Odt) 4 MG TAB.RAPDIS 1 TAB SL TID PRN nausea Ondansetron (Zofran Odt) 4 MG TAB.RAPDIS 1 TAB SL TID PRN nausea Ondansetron (Zofran Odt) 4 MG TAB.RAPDIS 1 TAB SL TID PRN NAUSEA Pantoprazole Sodium (Protonix) 20 MG TABLET. 1 TAB PO DAILY gerd Triage Note: PER PT LAC TO RT MIDDLE FINGER, WITH KNIFE. NOT SURE OF TETANUS, PAIN 04/10 LMP 02/23 Triage Nurses Notes Reviewed? yes Onset: Abrupt Duration: hour(s): (2-3), constant, continues in ED Timing: single episode today Severity: mild, moderate Severity Numbers: 8 Location: extremities Possible Factors: lac No Modifying Factors: none LMP (ages 10-50): unknown : No Patient currently breastfeeds: No HPI: 31-year-old female with no past medical history presents for evaluation of a laceration to the right anterior middle finger. Patient reports that several hours before presenting she hasn't was using a knife to cut food. Denies slipped and cut her middle finger. She denies any other injuries. She reports pain located in the area of the laceration. She reports the pain as an 8 out of 10 and is worse with any type of movement. She denies any numbness, tingling, decreased movement or any other associated symptoms. She is unsure of her last tetanus shot. She is not taking any medicine for the pain. Pain does not radiate. (ANNAMARIA BROOKE PA-C) Past History Travel History Traveled to [place] past 21 day No Medical History Any Pertinent Medical History? see below for history Neurological: NONE EENT: NONE Cardiovascular: ELEVATED TRIGLYCERIDES Respiratory: asthma Gastrointestinal: irritable bowel syndrome Hepatic: NONE Renal: KIDNEY INFECTIONS Musculoskeletal: NONE Psychiatric: anxiety, bipolar disease, depression Endocrine: 1. 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 No (ANNAMARIA BROOKE PA-C) Review of Systems Review of Systems Constitutional: Reports: no symptoms. EENTM: Reports: no symptoms. Respiratory: Reports: no symptoms. Cardiovascular: Reports: no symptoms. GI: Reports: no symptoms. Genitourinary: Reports: no symptoms. Musculoskeletal: Reports: no symptoms. Skin: Reports: see HPI (laceration). Neurological/Psychological: Reports: no symptoms. Hematologic/Endocrine: Reports: no symptoms. Immunologic/Allergic: Reports: no symptoms. All Other Systems: Reviewed and Negative (ANNAMARIA BROOKE PA-C) Physical Exam Physical Exam General Appearance: well developed/nourished, no apparent distress, alert, awake , anxious Head: atraumatic, normal appearance Eyes: Bilateral: normal appearance, PERRL, EOMI. Ears, Nose, Throat: normal pharynx, normal ENT inspection, hearing grossly normal Neck: normal inspection, supple, full range of motion Respiratory: normal breath sounds, chest non-tender, no respiratory distress, lungs clear Cardiovascular: regular rate/rhythm, normal peripheral pulses Peripheral Pulses: 2+ radial (R), 2+ radial (L) Gastrointestinal: normal bowel sounds, soft, non-tender, no organomegaly Back: normal inspection, normal range of motion Extremities: normal capillary refill, normal range of motion, no edema, injury present (rt 3rd digit ), there is a 1 cm linear laceration located on the anterior right third digit at the distal segment. There is visible subcutaneous tissue. No obvious foreign body. Full range of motion of the right upper Li is intact. Cap refill less than 2 seconds. Neurovascular supply is intact. Neurologic/Psych: no motor/sensory deficits, awake, alert, oriented x 3, normal gait, normal mood/affect Reflexes: 2+: knee (R), knee (L). Skin: normal color, warm/dry Skin Problem Location: upper extremities (rt 3rd digit) Skin Problem Character: linear, laceration Lymphatic: no anterior cervical alejandro (ANNAMARIA BROOKE PA-C) Progress Differential Diagnosis: abscess/cellulitis, allergic reaction, laceration, foreign body, tendon injury Plan of Care: Current Medications Sig/Augustin Start time Last Medication Dose Stop Time Status Admin Tetanus/Diphtheria 0.5 ML ONCE ONE 03/07 2115 AC Toxoids Adsorbed 03/07 2116 (Decavac) Patient has a 1 cm linear laceration located on the distal segment of the right anterior third digit. There is subcutaneous tissue visible. Patient will have sutures to approximate the wound. Tetanus will be updated. Laceration was approximated using 3 5-0 nylon simple interrupted sutures. He tolerated well without any acute complications. Consultation about proper wound care instructions. Discussed signs and symptoms of infection. Use Tylenol or ibuProfen for the pain. Patient is nontoxic appearing at discharge and agrees with the plan. (ANNAMARIA BROOKE PA-C) Departure Departure Disposition: HOME OR SELF CARE Condition: Stable Clinical Impression Primary Impression: Laceration Referrals: UNKNOWN (PCP/Family) Additional Instructions: Keep The area clean and dry. Change dressing once a day for the next 3 or 4 days. Apply bacitracin once a day for the next 2 days. Use Tylenol or ibuprofen as needed for pain. After 3 or 4 days leave the area open to air dry. If you will be doing something were dirt might get in the wound keep the area covered. Look out for signs of infection such as redness swelling discharge or pain. Follow with your primary care doctor for a wound check in the next few days. Return to the emergency department her primary care doctor in 7-10 days for suture removal. Please go over all results of today's visit with your primary care doctor. Contact your primary care doctor to let them know you were here in the emergency room. There may be nonspecific findings which may not be related to your visit today here in the emergency room but may require further evaluation and chronic monitoring by your primary care doctor. If you had a laceration today the chance of foreign body always remains. You should follow-up with your primary care doctor for recheck in 3-5 days for a wound check. If you had an x-ray done there is a chance that a fracture could have been missed on initial read and you should follow-up with your primary care doctor for repeat x-rays if symptoms persist. If your blood pressure was elevated here in the emergency room please have rechecked by her primary care doctor within the next 48 hours by your primary care doctor. If you were prescribed a narcotic here in the emergency room or any type of controlled substances you're not allowed to drive while taking this medication or operate any type of heavy machinery. Narcotics can make you feel lightheaded dizziness nausea and can cause constipation. You may need to vegetable picker a stool softener. Thank you for choosing [facility] emergency room. Please return to the emergency room immediately if you have any other concerns worsening of symptoms. Departure Forms: Customer Survey General Discharge Information (ANNAMARIA BROOKE PA-C) PA/SPRING WINDER Co-Sign Statement Statement: ED Attending supervision documentation- [] I saw and evaluated the patient. I have also reviewed all the pertinent lab results and diagnostic results. I agree with the findings and the plan of care as documented in the PA's/SPRING WINDER's documentation. [x] I have reviewed the ED Record and agree with the PA's/SPRING WINDER's documentation. [] Additions or exceptions (if any) to the PAs/SPRING WINDER's note and plan are summarized below: [] (LILIBETH CHARLES,ROSALINDA Pérez) Procedures Laceration/Wound Repair Laceration/Wound Repair: Wound Location: upper extremity (rt 3rd digit ) Wound's Depth, Shape: linear, subcutaneous Wound Length (cm): 1 Wound Explored: clean, no foreign body removed Irrigated w/ Saline (ccs): 500 Betadine Prep? Yes Anesthesia: 1% lidocaine Volume Anesthetic (ccs): 4 Wound Debrided: minimal Wound Repaired With: sutures Suture Size/Type: 5:0 Number of Sutures: 3 Layer Closure? No Sterile Dressing Applied: Yes Splint Applied? No Tetanus Status: not up to date Progress: Consent obtained. Wound was thoroughly irrigated with sterile saline. Betadine prep. 4 mL of 1% lidocaine without epi were applied for local pain control. 3 5-0 nylon simple interrupted sutures were placed to approximate the wound. Sterile dressing applied. Patient tolerated well without any acute complications (ANNAMARIA BROOKE PA-C)
== END 2017-03-07 21:28 ==
LOC: ERH 19:32
DX: S61.212A Laceration without foreign body of right middle finger without damage to nail, initial encounter (principal); W26.0XXA Contact with knife, initial encounter; Y93.G1 Activity, food preparation and clean up; Y92.9 Unspecified place or not applicable
CPT/HCPCS: 90471; 90714

== ENCOUNTER 2017-12-12 13:45 | Emergency (ER) | payer OTHER ==
[~2017-12-12] VITALS: Ht 152.4 cm; Wt 67.1 kg
[~2017-12-12 13:45] MED LIST changes: +CLONIDINE HCL0.1 MG PO; +CLOTRIMAZOLE15 GM TOP; +LAMICTAL100 M2 PO; +PRENATAL TABLE1 EAC2 PO; +PROAIR HFA8.5 GM INH; +ZITHROMAX250 M2 PO; +ZOFRAN4 M2 PO
[2017-12-12] MEDS ORDERED: FERRALET 90 TA1 EACH PO (14:03)
[2017-12-12] MEDS ORDERED: VITAFOL GUMMIE1 EACH PO (14:03)
--- NOTE | 2017-12-12 14:23 | ED MVC/FALL/TRAUMA COMPLAINT ---
History of Present Illness General Chief Complaint: Fall Stated Complaint: 35 WEEKS PREG, FALL ON STOMACH Source: patient, family Exam Limitations: no limitations Allergies Coded Allergies: Penicillins (RASH 11/19/16) Sulfa (Sulfonamide Antibiotics) (RASH 11/19/16) clarithromycin (RASH 11/19/16) latex (RASH 11/19/16) moxifloxacin (From AVELOX) (HIVES, RASH 11/19/16) Reconcile Medications Iron Carb,Gl/FA/B12/C/Docusate (Ferralet 90 Tablet) 90 MG-1 MG-12 MCG-120 MG-50 MG TABLET 1 TAB PO DAILY IRON (Reported) Pnv 112/Iron/FA/Om-3S/Dha/Epa (Vitafol Gummies) 1 EACH TAB.CHEW 1 TAB PO BID PRE-MARILU (Reported) Triage Note: BIBA S/P MECHANICAL FALL, PATIENT TRIPPED ON A CURB AND HIT HER FACE AND STOMACH ON THE PAVEMENT. PATIENT ARRIVES ALERT, ORIENTED, SPEECH CLEAR, PATIENT ARRIVES WITH C-COLLAR ON, + HEADSTRIKE, SWELLING TO LIPS, PATIENT REPORTS NECK PAIN, ABRASION TO CHIN, PATIENT REPORTS GENERAL PAIN TO EXTREMITIES, DENIES ABD PAIN. OB RN AT BEDSIDE FOR HEART TONES, PER RN HR:130. PATIENT DENIES SOB AND CHEST PAIN. FAMILY AT BEDSIDE. VITALS OBTAINED. Triage Nurses Notes Reviewed? yes Onset: Abrupt Duration: hour(s): Timing: single episode today Severity: moderate Injuries/Fall Location: head, upper extremity, abdomen Method of Injury: fall Loss of Consciousness: no loss of consciousness : Yes Patient currently breastfeeds: No HPI: 32-year-old 35 weeks female presents emergency department after fall prior to arrival. Patient states she was walking and tripped falling on her abdomen and face. Patient complaining of significant pain to chin and cheek bones. There is no loss of consciousness or blackout during the fall. Patient has been feeling movement since the fall, no abdominal pain. Patient states pain in jaw is worse with movement and talking. Patient sees SIEVE MAKER Florinda Hughes MD, her has been normal thus far. Patient denies chest pain, pleuritic pain, dyspnea, vomiting, visual changes. (Selina WILLIS,Kaylynn Al) Vital Signs & Intake/Output Vital Signs & Intake/Output Vital Signs Date Time Temp Pulse Resp B/P B/P Pulse O2 O2 Flow FiO2 Mean Ox Delivery Rate 12/12 1751 98.4 72 20 99/60 98 Room Air 12/12 1401 98.1 80 20 117/58 97 Room Air (Krystle CHARLES,Raza Brown) Past History Travel History Traveled to [place] past 21 day No Medical History Any Pertinent Medical History? 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 No (Kaylynn Bourne) Review of Systems Review of Systems Constitutional: Reports: no symptoms. Eyes: Reports: no symptoms. Ears, Nose, Throat, Mouth: Reports: no symptoms. Respiratory: Reports: no symptoms. Cardiovascular: Reports: no symptoms. Gastrointestinal/Abdominal: Reports: see HPI. Genitourinary: Reports: see HPI. Musculoskeletal: Reports: see HPI. Skin: Reports: no symptoms. Neurological/Psychological: Reports: no symptoms. All Other Systems: Reviewed and Negative (Selina WILLIS,Kaylynn Al) Physical Exam Physical Exam General Appearance: well developed/nourished, no apparent distress, alert, awake Head: normal appearance, tenderness and abrasion to chin, no gross deformity, jaw/bite appears in line Eyes: Bilateral: normal appearance, PERRL, EOMI. Ears, Nose, Throat, Mouth: hearing grossly normal, moist mucous membrane, Tympanic normal, no hemotympanum Neck: normal inspection, supple, full range of motion, no midline tenderness Respiratory: normal breath sounds, no respiratory distress, lungs clear Cardiovascular: regular rate/rhythm Peripheral Pulses: 2+ radial (R), 2+ radial (L) Gastrointestinal: normal bowel sounds, soft, non-tender Back: normal inspection, normal range of motion, no vertebral tenderness Extremities: abrasions to bilateral palms without bony tenderness Neurologic/Psych: no motor/sensory deficits, awake, alert, oriented x 3, 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 No CVA/TIA Diagnosis No Sepsis Present: No Sepsis Focused Exam Completed? No (Selina WILLIS,Kaylynn Al) Progress Differential Diagnosis: abd injury, C/T/L spine injury, ext injury, ICH, pnemothorax, mandible fracture, injury, premature contractions (Kaylynn Bourne) Plan of Care: Orders Procedure Date/time Status XRY-MANDIBLE LESS THAN 4 VIEWS 12/12 1658 Active Patient was seen and evaluated by childbirth RN. heart tones 1:30. Patient has no abdominal tenderness, she is feeling movement. No vaginal bleeding. She has no known contractions. Dr. Dalton spoke with radiology, we will be unable to assess her mandible with ultrasound. I spoke with SIEVE MAKER on-call, Dr. Ramos, she feels it is safe to perform mandible x-ray for further evaluation. She also recommends 4 hour observation in childbirth center. Patient initially consenting to obtain an x-ray to rule out trauma fracture. Patient here in the emergency department for close to 4 hours, we are working on getting her a mandible x-ray. At this time patient declining x-ray as she feels it is too harmful for her baby. She states she is ready to leave at this time, is unhappy with duration of visit. Patient states she is unwilling to go to work childbirth center, states she is going to go to [place]. Patient informed of risks to leaving prior to evaluation andthat there are risks involved in terms of labor and risks to her fetus. Patient understands these risks ever states she cannot stay here longer, states she is going to [place] now. Patient signed out AGAINST MEDICAL ADVICE. Dr. Aguilera was present to discuss risks as well, patient still leaving [place]. (Kaylynn Bourne) (Krystle CHARLES,Raza Brown) Departure Departure Disposition: LEFT AGAINST MEDICAL ADVICE Condition: Stable Clinical Impression Primary Impression: Fall Qualifiers: Encounter type: initial encounter Qualified Code: W19.XXXA - Unspecified fall, initial encounter Secondary Impressions: Abrasion Referrals: Apple Dotson APRN (PCP/Family) Additional Instructions: Please follow-up with your SIEVE MAKER for further evaluation of your . It is also recommended he follow up with dentist or guarding or jaw pain. It is recommended you eat only soft foods as there is a possibility your draw is broken. Return with worsening symptoms or concerns. Departure Forms: Customer Survey General Discharge Information (Selina WILLIS,Kaylynn Al) PA/POST HOLE DIGGING MACHINE OPERATOR Co-Sign Statement Statement: ED Attending supervision documentation- [X] I saw and evaluated the patient. I have also reviewed all the pertinent lab results and diagnostic results. I agree with the findings and the plan of care as documented in the PA's/POST HOLE DIGGING MACHINE OPERATOR's documentation. Patient presents for evaluation of same injury sustained status post fall prior to arrival. Patient fell from standing suffering an abrasion to the jaw and hands. Physical examination reveals tenderness and abrasion over the jaw to the right of midline with no apparent dental trauma. Abdomen is soft nontender and gravid. [] I have reviewed the ED Record and agree with the PA's/POST HOLE DIGGING MACHINE OPERATOR's documentation. [] Additions or exceptions (if any) to the PAs/POST HOLE DIGGING MACHINE OPERATOR's note and plan are summarized below: [] (Krystle CHARLES,Raza Brown)
--- NOTE | 2017-12-12 17:18 | ULTRASOUND REPORT ---
EXAMINATION: US , VIABILITY CLINICAL INFORMATION: 32-year-old female patient who fell on her abdomen. Third trimester . LMP April 16, 2017. Based on dates, estimated gestational age at this time is 34 weeks 2 days. ELEAZAR January 21, 2018. COMPARISON: None this . TECHNIQUE: Limited view of the intrauterine contents. FINDINGS: A single fetus is in cephalic presentation. The placenta is posterior, grade 2. heart rate is 1 51 bpm. Amniotic fluid index is normal at 13.4 cm. movement was seen. Based on a biparietal diameter of 8.51 cm, head circumference of 30.85 cm, abdominal circumference of 29.75 cm, and a femur length of 6.52 cm, estimated gestational age is 34 weeks 1 day. Size equals dates. IMPRESSION: Single live intrauterine in cephalic presentation.
[2017-12-12 17:51] VITALS: BP 99/60
== END 2017-12-12 18:01 | disposition left against medical advice (07) ==
LOC: ERH 13:45
DX: O9A.213 Injury, poisoning and certain other consequences of external causes complicating pregnancy, third trimester (principal); S00.81XA Abrasion of other part of head, initial encounter; W18.09XA Striking against other object with subsequent fall, initial encounter; Y92.9 Unspecified place or not applicable; Y93.9 Activity, unspecified
CPT/HCPCS: 96374; J0131